=== PATIENT | female | born 1955 | race Caucasian/White ===

== ENCOUNTER → 2020-03-26 | Outpatient (CLI) | payer OTHER ==
--- NOTE | 2020-03-26 14:12 | CT ---
EXAMINATION TYPE: CT abdomen pelvis wo con DATE OF EXAM: 03/26/2020 HISTORY: Left upper quadrant tenderness. CT DLP: 699 mGycm. Automated Exposure Control for Dose Reduction was Utilized. TECHNIQUE: CT scan of the abdomen and pelvis is performed without oral or IV contrast. COMPARISON: NONE FINDINGS: Within the limitations of a non-contrast study, the following observations are made. LUNG BASES: Patchy bibasilar linear scarring and/or atelectasis. LIVER/GB: Cholecystectomy clips. PANCREAS: No significant abnormality is seen. SPLEEN: No significant abnormality is seen. ADRENALS: No significant abnormality is seen. KIDNEYS: There is 3 mm nonobstructing calculus left kidney midpole level coronal image 39 and 2 mm no nobstructing calculus upper pole level image 48. No right-sided nephrolithiasis. No hydronephrosis or obstructing ureteral calculi. BOWEL: Suboptimal evaluation of bowel without enteric contrast. No suspicious small or large bowel di latation. Sigmoid colonic diverticulosis without convincing CT evidence for acute diverticulitis. GENITAL ORGANS: Normal size uterus. No suspicious adnexal masses. LYMPH NODES: No greater than 1cm abdominal or pelvic lymph nodes are appreciated. OSSEOUS STRUCTURES: Moderate disc space narrowing vacuum disc phenomenon L5-S1 level. Grade 1 anterol isthesis L4 on L5. Prominent facet arthropathy lower lumbar levels. There is nonspecific disc space n arrowing with suspected calcified disc and significant endplate sclerosis at the T10-T11 level. Corre late for possible old trauma or infection at this level. OTHER: Mild calcified plaque of the aorta extends into branch vessels. IMPRESSION: There are 2 small nonobstructing left renal calculi. No hydronephrosis or obstructing ure teral calculi bilaterally. Source of acute left upper quadrant pain not identified.
== END | disposition home or self-care (01) ==
LOC: RADCTMAIN 13:34
PROVIDERS: ATTEND Family Medicine
DX: N20.0 Calculus of kidney (principal); R10.32 Left lower quadrant pain
CPT/HCPCS: 74176

== ENCOUNTER → 2025-02-07 | Outpatient (CLI) | payer MEDICARE, OTHER ==
--- NOTE | 2025-02-07 14:27 | CT ---
EXAMINATION TYPE: CT brain wo con DATE OF EXAM: 02/07/2025 2:11 PM COMPARISON: None. CLINICAL INDICATION: Female, 69 years old with history of W19.XXXA, Tremors occurring for the last 6 months. TECHNIQUE: CT of the brain is performed utilizing 3 mm thick sections through the posterior fossa and 3 mm thick sections through the remaining calvarium. Study is performed within 24 hours of arrival to the hospital. Contrast used: mL of , (none if empty) CT DLP: 1098.8 mGycm, Automated exposure control for dose reduction was used. FINDINGS: No abnormal hyperdensity is present to suggest an acute intracranial hemorrhage. No mass lesion is evident. No acute infarcts are evident. Ventricles and sulci are appropriate for the patient age. There is opacification of the right maxillary sinus which may be chronic with thickening of the maxil mary lópez. Remaining paranasal sinuses and mastoid air cells are clear. IMPRESSION: 1. No acute intracranial process. Follow up MRI can be performed as clinically indicated. 2. Opacification of the right maxillary sinus may be chronic. [facility], , 02/07/2025 2:25 PM
== END | disposition home or self-care (01) ==
LOC: RADCTMAIN 13:28
PROVIDERS: ATTEND Family Medicine
DX: Z87.828 Personal history of other (healed) physical injury and trauma (principal); W19.XXXA Unspecified fall, initial encounter
CPT/HCPCS: 70450